=== PATIENT | male | born 2000 | race Caucasian/White ===

== ENCOUNTER 2021-03-11 14:44 | Outpatient (REF) | payer OTHER, SELFPAY | END 2021-03-11 14:45 | disposition home or self-care (01) | LOC: HO.HMGCLDS 14:44 | PROVIDERS: PCP Internal Medicine; Visit Provider Internal Medicine | DX: Z20.822 Contact with and (suspected) exposure to COVID-19 (principal) | CPT/HCPCS: C9803; U0003; U0005 ==

== ENCOUNTER → 2021-03-24 12:46 | Outpatient (BNVA) | payer OTHER, SELFPAY | PROVIDERS: PCP Internal Medicine; Referring Provider Internal Medicine; Visit Provider Physician Assistant ==

== ENCOUNTER → 2021-03-27 16:21 | Outpatient (BNVA) | payer OTHER, SELFPAY | PROVIDERS: PCP Internal Medicine; Visit Provider Physician Assistant ==

== ENCOUNTER → 2021-04-28 08:13 | Outpatient (BNVA) | payer OTHER, SELFPAY | PROVIDERS: PCP Internal Medicine; Visit Provider Dietitian, Registered | DX: E66.9 Obesity, unspecified (principal); Z68.38 Body mass index [BMI] 38.0-38.9, adult | CPT/HCPCS: 97802 ==

== ENCOUNTER → 2021-05-30 13:39 | Outpatient (BNVA) | payer OTHER, SELFPAY | PROVIDERS: PCP Internal Medicine; Referring Provider Internal Medicine; Visit Provider Dietitian, Registered | DX: E66.9 Obesity, unspecified (principal); Z68.38 Body mass index [BMI] 38.0-38.9, adult; Z91.010 Allergy to peanuts; Z91.013 Allergy to seafood | CPT/HCPCS: 97803 ==

== ENCOUNTER → 2021-06-30 14:53 | Outpatient (BNVA) | payer OTHER, SELFPAY | PROVIDERS: PCP Internal Medicine; Referring Provider Internal Medicine; Visit Provider Physician Assistant ==

== ENCOUNTER 2024-01-31 17:20 | Outpatient (AMB) | payer OTHER, SELFPAY ==
--- NOTE | 2024-01-31 17:26 | MHC.PC.OV ---
Vital Signs 01/31/24 17:28 Height 6 ft 2 in Weight 315 lb BMI 40.4 BP 124/86 Blood Pressure Location Lt brachial Position Sitting Pulse 91 Pulse Source Pulse Oximeter Pulse Oximetry (%) 97 Oxygen Delivery Method Room Air Intake Visit Reasons: Annual Exam Intake Note: Patient here for an annual physical exam Program Evaluator Required: No Accompanied by: Self / Same As Patient Allergies penicillin V Allergy (Severe, Verified 01/31/24 17:29) Anaphylaxis Medication List - Last Reconciled 01/31/24 by Royer Alonzo MD triamcinolone acetonide 0.1% 1 appl topical DAILY 14 days Tobacco use date assessed: 01/31/24 Dental Screening Dental Screen Date: 01/31/24 Did you have a dental visit in the last 12 months?: Yes Did you have a dental problem in the last 6 months where you did not have access to dental care?: No Was dental information given to patient?: Patient has dentist HPI Annual Exam HPI Details 23-year-old morbidly obese male with BMI of 40.4 coming in for physical exam last seen in June 2021. Patient did see the nurse practitioner last year January for physical exam also diagnosis of psoriasis and was referred to dermatology with the weight problem was referred to weight management 2020 was recommended certain diet. [facility] Medical History (Updated 01/31/24 @ 18:01 by Royer Alonzo MD) BMI 38.0-38.9,adult Asthma Psoriasis Obesity (BMI 30-39.9) Surgical History (Updated 01/31/24 @ 17:29 by STEFANO Hidalgo) No pertinent past surgical history Family History Mother No problems noted. Father No problems noted. Sister No problems noted. Sister No problems noted. Brother No problems noted. Brother No problems noted. Social History (Updated 01/31/24 @ 18:06 by Royer Alonzo MD) Housing: House Alcohol intake: current Alcohol intake frequency: holidays/special occasions only Alcohol type: hard liquor Comment: once a month hard liquor 2-3 glasses Patient Tobacco Use Status: Never used Tobacco e-Cigarette/Vaping Use: Never Used Second Hand Smoke Exposure: No service: No Current occupational status: employed Current occupational exposures/hazards: No Cognitive needs: No Hearing needs: No Vision needs: No Questionnaire PHQ-9 Over the last 2 weeks, how often have you been bothered by any of the following problems? 1. Little interest or pleasure in doing things: not at all 2. Feeling down, depressed, or hopeless: not at all 3. Trouble falling or staying asleep, or sleeping too much: not at all 4. Feeling tired or having little energy: not at all 5. Poor appetite or overeating: not at all 6. Feeling bad about yourself - or that you are a failure or have let yourself or your family down: not at all 7. Trouble concentrating on things, such as reading the newspaper or watching television: not at all 8. Moving or speaking so slowly that other people could have noticed. Or the opposite - being so fidgety or restless that you have been moving around a lot more than usual: not at all 9. Thoughts that you would be better off or of hurting yourself in some way: not at all Total score: 0 Source: Developed by Drs. Jian Mac, Elise Self, Chadwick Armijo and colleagues, with an educational elroy from [employer]. Thrive Questionnaire Date Thrive assessed: 01/31/24 I am a: Patient What is your living situation today?: I have a steady place to live Within the past 12 months, did the food you bought not last and you didn't have the money to get more?: Never true Within the past 12 months, did you worry whether your food would run out before you got money to buy more?: Never true Do you have trouble paying for medicines?: No Do you have trouble getting transportation to medical appointments?: No Do you have trouble paying your heating and electricity bill?: No Do you have trouble taking care of your child, family member or friend?: No Do you have trouble with day-to-day activities such as bathing, preparing meals, shopping, managing finances, etc.?: No Are you currently unemployed and looking for a job?: No Are you interested in more education?: No Please select the resources that you would like help with: None Currently or been in a relationship where the following occur: no concerns reported THRIVE Score: 0 AUDIT C Alcohol Use Questionnaire (AUDIT-C) 1. How often do you have a drink containing alcohol?: Monthly or less 2. How many drinks containing alcohol do you have on a typical day when you are drinking?: 1 or 2 3. How often do you have six or more drinks on one occasion?: Never Total Score: 1 LUKAS-7 AMB Questionnaire LUKAS-7 Date LUKAS - 7 assessed: 01/31/24 Feeling nervous, anxious, or on edge: 0 = Not at all Not being able to stop or control worryin = Not at all Worrying too much about different things: 0 = Not at all Trouble relaxin = Not at all Being so restless that it is hard to sit still: 0 = Not at all Becoming easily annoyed or irritable: 0 = Not at all Feeling afraid as if something awful might happen: 0 = Not at all Total LUKAS-7 score (0-4 normal; 5-9 mild; 10-14 moderate; 15-21 severe): 0 Source: Developed by Drs. Jian Mac, Elise Self, Chadwick Armijo and colleagues, with an educational elroy from [employer]. Review of Systems Const Denies poor appetite and Denies weakness Eyes Denies no additional complaints ENT Reports Normal hearing present, Denies dizziness, Denies nasal congestion, Denies tinnitus and Denies sore throat Card Denies chest pain, Denies syncope, Denies rapid heart rate and Denies dyspnea Resp Denies cough and Denies dyspnea GI Denies change in stool character, Reports constipation, Denies diarrhea, Denies nausea and Denies vomiting Denies dysuria and Denies urinary frequency Neuro Reports Normal hearing present, Denies confusion, Denies dizziness, Denies syncope and Denies weakness Psych Denies confusion Physical exam (Primary Care) Vital Signs: Last Vital Signs Pulse 91 01/31/24 17:28 BP 124/86 01/31/24 17:28 Pulse Ox 97 01/31/24 17:28 Oxygen Delivery Method Room Air 01/31/24 17:28 BMI result Body Mass Index 40.4 Tobacco/Smoking Status: Tobacco use Status Tobacco use date assessed 01/31/24 01/31/24 17:34 Patient Tobacco Use Status Never used Tobacco 01/31/24 17:34 e-Cigarette/Vaping Use Never Used 01/31/24 17:34 PHQ-9: PHQ-9 Score PHQ-9: Total score 0 01/31/24 17:34 Thrive Assessment: Date of Thrive Assessment Date Thrive assessed 01/31/24 01/31/24 17:34 Currently or been in a relationship where the following occur: no concerns reported Const General: No confusion Orientation/consciousness: No confusion HENMT Head: Yes normocephalic Ears: external ears normal and TM's normal bilaterally Face and sinus: Yes normal facial exam Mouth: moist mucous membranes Throat: Yes tonsils normal Eyes Conjunctivae: conjunctivae normal Pupils: Equal, round and reactive pupils present and Pupil accommodation reflex normal Direct Ophthalmoscopy: normal light reflex Neck Neck: No lymphadenopathy Thyroid: Thyroid normal Chest Chest palpation & inspection: normal inspection of the chest Resp Effort & Inspection: normal respiratory effort and no audible wheezes Auscultation: clear to auscultation bilaterally, no crackles, no wheezes and lung sounds not diminished Cardio Rate: regular rate Rhythm: regular rhythm Peripheral pulses: radial pulses present and dorsalis pedis present GI Other: visual exam negative Palpation (GI): no masses Auscultation: normal bowel sounds and normoactive bowel sounds Rectal Exam - Male: Yes deferred Male General Exam: Yes normal external exam Skin General skin exam: no rashes or lesions noted Rashes: no rashes Neuro General: No confusion Cranial nerves: Yes Equal, round and reactive pupils present and Yes Normal hearing present Cognition (Neuro): normal cognition Gait exam (Neuro): Normal gait present Motor exam (neuro): 5/5 motor strength present throughout Deep tendon reflexes (DTR's): Right brachioradialis reflex intensity grade: 2+, Left brachioradialis reflex intensity grade: 2+, Right patellar reflex intensity grade: 2+ and Left patellar reflex intensity grade: 2+ Extrem General: No edema Assessment and Plan Assessment & Plan (1) Morbidly obese: Code(s): E66.01 - Morbid (severe) obesity due to excess calories Plan: Diet and exercise patient is advised to get blood work done (2) Adult general medical exam: Code(s): Z00.00 - Encounter for general adult medical examination without abnormal findings (3) Psoriasis: Code(s): L40.9 - Psoriasis, unspecified Plan: Dr. Muir , hydorcortisone cream Orders: Orders Complete Blood Count Auto Diff Today Z00.00 - Encounter for general adult medical examination without abnormal findings Comprehensive Met. Panel Today Z00.00 - Encounter for general adult medical examination without abnormal findings Thyroid Stimulating Hormone Today Z00.00 - Encounter for general adult medical examination without abnormal findings Vitamin B12 and Folate Today Z00.00 - Encounter for general adult medical examination without abnormal findings Free T4 (Free Thyroxine) Today Z00.00 - Encounter for general adult medical examination without abnormal findings Lipid Panel Today E78.00 - Pure hypercholesterolemia, unspecified, Z00.00 - Encounter for general adult medical examination without abnormal findings Coding Level of Care Code Est Pt Prev Care 18-39y([id number]) Diagnoses Morbidly obese E66.01 Adult general medical exam Z00.00 Psoriasis L40.9
[2024-01-31 17:28] VITALS: BP 124/86; PULSE 91; O2SAT 97; BMI 40.4
== END 2024-01-31 18:19 | disposition home or self-care (01) ==
PROVIDERS: Visit Provider Internal Medicine
DX: Z00.00 Encounter for general adult medical examination without abnormal findings (principal); E66.01 Morbid (severe) obesity due to excess calories; L40.9 Psoriasis, unspecified; Z68.41 Body mass index [BMI] 40.0-44.9, adult
CPT/HCPCS: 99395

== ENCOUNTER 2025-02-01 16:10 | Outpatient (AMB) | payer OTHER, SELFPAY ==
--- NOTE | 2025-02-01 16:16 | A.OFFPC_ITS ---
Vital Signs 02/01/25 16:17 Height 6 ft 2 in Weight 302 lb BMI 38.8 BP 130/86 Blood Pressure Location Lt brachial Position Sitting Pulse 95 Pulse Source Pulse Oximeter Temp 96.9 F Temp Source Temporal Artery Scan Pulse Oximetry (%) 97 Oxygen Delivery Method Room Air Intake Visit Reasons: annual exam Ob/Gyn Required: No Accompanied by: Self / Same As Patient Allergies penicillin V Allergy (Severe, Verified 02/01/25 16:21) Anaphylaxis Medication List - Last Reconciled 02/01/25 by Royer Alonzo MD apremilast (Otezla) 30 mg PO BID ascorbate calcium (vitamin C) 500 mg PO DAILY cholecalciferol (vitamin D3) 25 mcg PO DAILY triamcinolone acetonide 0.1% 1 appl topical DAILY 14 days vitamin A 2,400 mcg PO DAILY Tobacco use date assessed: 02/01/25 Dental Screening Dental Screen Date: 02/01/25 Did you have a dental visit in the last 12 months?: Yes Did you have a dental problem in the last 6 months where you did not have access to dental care?: No Was dental information given to patient?: Patient has dentist HPI annual exam HPI Details travelling recently, sick cold recently,, sore throat and cough better, , [facility] Medical History (Updated 02/01/25 @ 16:50 by Royer Aolnzo MD) Morbidly obese BMI 38.0-38.9,adult Asthma Psoriasis Obesity (BMI 30-39.9) Surgical History No pertinent past surgical history Family History Mother No problems noted. Father No problems noted. Sister No problems noted. Sister No problems noted. Brother No problems noted. Brother No problems noted. Social History (Updated 02/01/25 @ 16:29 by Royer Alonzo MD) Housing: House Alcohol intake: current Alcohol intake frequency: holidays/special occasions only Alcohol type: hard liquor Comment: once a month hard liquor 2-3 glasses- 02/2025 1-2 drinks Q4-5 months Patient Tobacco Use Status: Never used Tobacco e-Cigarette/Vaping Use: Never Used Second Hand Smoke Exposure: No service: No Current occupational status: employed Current occupational exposures/hazards: No Cognitive needs: No Hearing needs: No Vision needs: No Questionnaire PHQ-9 Over the last 2 weeks, how often have you been bothered by any of the following problems? 1. Little interest or pleasure in doing things: not at all 2. Feeling down, depressed, or hopeless: not at all 3. Trouble falling or staying asleep, or sleeping too much: not at all 4. Feeling tired or having little energy: not at all 5. Poor appetite or overeating: not at all 6. Feeling bad about yourself - or that you are a failure or have let yourself or your family down: not at all 7. Trouble concentrating on things, such as reading the newspaper or watching television: not at all 8. Moving or speaking so slowly that other people could have noticed. Or the opposite - being so fidgety or restless that you have been moving around a lot more than usual: not at all 9. Thoughts that you would be better off or of hurting yourself in some way: not at all Total score: 0 Depression Screening Interpretation: Negative Depression Screening Done: Yes 22307 - PHQ-9 Billing: Yes Source: Developed by Drs. Jian Mac, Elise Self, Chadwick Armijo and colleagues, with an educational elroy from [employer]. Thrive Questionnaire Date Thrive assessed: 02/01/25 I am a: Patient What is your living situation today?: I have a steady place to live Within the past 12 months, did the food you bought not last and you didn't have the money to get more?: Never true Within the past 12 months, did you worry whether your food would run out before you got money to buy more?: Never true Do you have trouble paying for medicines?: No Do you have trouble getting transportation to medical appointments?: No Do you have trouble paying your heating and electricity bill?: No Do you have trouble taking care of your child, family member or friend?: No Do you have trouble with day-to-day activities such as bathing, preparing meals, shopping, managing finances, etc.?: No Are you currently unemployed and looking for a job?: No Are you interested in more education?: I choose not to answer this question Please select the resources that you would like help with: None Currently or been in a relationship where the following occur: No concerns reported THRIVE Score: 0 AUDIT C Alcohol Use Questionnaire (AUDIT-C) 1. How often do you have a drink containing alcohol?: Monthly or less 2. How many drinks containing alcohol do you have on a typical day when you are drinking?: 1 or 2 3. How often do you have six or more drinks on one occasion?: Never Total Score: 1 LUKAS-7 AMB Questionnaire LUKAS-7 Date LUKAS - 7 assessed: 02/01/25 Feeling nervous, anxious, or on edge: 0 = Not at all Not being able to stop or control worryin = Not at all Worrying too much about different things: 0 = Not at all Trouble relaxin = Not at all Being so restless that it is hard to sit still: 0 = Not at all Becoming easily annoyed or irritable: 0 = Not at all Feeling afraid as if something awful might happen: 0 = Not at all Total LUKAS-7 score (0-4 normal; 5-9 mild; 10-14 moderate; 15-21 severe): 0 Source: Developed by Drs. Jian Mac, Elise Self, Chadwick Armijo and colleagues, with an educational elroy from [employer]. LUKAS-7 Assessment Billing LUKAS-7 Assessment Tool: LUKAS-7 Assessment 04595 Review of Systems Const Denies poor appetite and Denies weakness Eyes Denies no additional complaints ENT Reports Normal hearing present, Denies dizziness, Denies nasal congestion, Denies tinnitus and Denies sore throat Card Denies chest pain, Denies syncope, Denies rapid heart rate and Denies dyspnea Resp Denies cough and Denies dyspnea GI Denies change in stool character, Reports constipation, Denies diarrhea, Denies nausea and Denies vomiting Denies dysuria and Denies urinary frequency Neuro Reports Normal hearing present, Denies confusion, Denies dizziness, Denies syncope and Denies weakness Psych Denies confusion Physical exam (Primary Care) Vital Signs: Oxygen Delivery Method Room Air 02/01/25 16:17 Tobacco/Smoking Status: Tobacco use Status Tobacco use date assessed 01/31/24 01/31/24 17:34 Patient Tobacco Use Status Never used Tobacco 01/31/24 18:06 e-Cigarette/Vaping Use Never Used 01/31/24 18:06 Depression Screening Interpretation: Negative Thrive Assessment: Date of Thrive Assessment Date Thrive assessed 02/01/25 02/01/25 16:05 Currently or been in a relationship where the following occur: No concerns reported Const General: No confusion Orientation/consciousness: No confusion HENMT Other: impacted cerumen bilateral Head: Yes normocephalic Ears: external ears normal Face and sinus: Yes normal facial exam Mouth: moist mucous membranes Throat: Yes tonsils normal Eyes Conjunctivae: conjunctivae normal Pupils: Equal, round and reactive pupils present and Pupil accommodation reflex normal Direct Ophthalmoscopy: normal light reflex Neck Neck: No lymphadenopathy Thyroid: Thyroid normal Chest Chest palpation & inspection: normal inspection of the chest Resp Effort & Inspection: normal respiratory effort and no audible wheezes Auscultation: clear to auscultation bilaterally, no crackles, no wheezes and lung sounds not diminished Cardio Rate: regular rate Rhythm: regular rhythm Peripheral pulses: radial pulses present and dorsalis pedis present GI Palpation (GI): no masses Auscultation: normal bowel sounds and normoactive bowel sounds Rectal Exam - Male: Yes deferred Skin General skin exam: no rashes or lesions noted Rashes: no rashes Neuro General: No confusion Cranial nerves: Yes Equal, round and reactive pupils present and Yes Normal hearing present Cognition (Neuro): normal cognition Gait exam (Neuro): Normal gait present Motor exam (neuro): 5/5 motor strength present throughout Deep tendon reflexes (DTR's): Right brachioradialis reflex intensity grade: 2+, Left brachioradialis reflex intensity grade: 2+, Right patellar reflex intensity grade: 2+ and Left patellar reflex intensity grade: 2+ Extrem General: No edema Office Procedures Cerumen Removal From which ear canal was the cerumen removed: bilateral Removal: irrigation, otoscope w/curette, cerumen loop/spoon and other Notes: patient tolerated procedure well, no complications and ear canal clear 64512-Ynj Irrigation/Lavage Coding Level of Care Code Est Pt Level 3 (61117) Est Pt Prev Care 18-39y(70888) Diagnoses Adult general medical exam Z00.00 Psoriasis L40.9 Obesity (BMI 30-39.9) E66.9 Impacted cerumen of both ears H61.23 CPT Codes Office Procedure - CPT: 37096-Qph Irrigation/Lavage ([id number]) Additional Codes LUKAS-7 Assessment Billing - LUKAS-7 Assessment Tool: LUKAS-7 Assessment 06019 ([id number]) PHQ-9 - 06141 - PHQ-9 Billing: Yes ([id number]) Assessment & Plan Assessment & Plan (1) Adult general medical exam: Code(s): Z00.00 - Encounter for general adult medical examination without abnormal findings Category: Medical Plan: Patient is advised to eat healthy, keep well hydrated, keep active and have adequate sleep. (2) Psoriasis: Comment: Dr. Christianson Code(s): L40.9 - Psoriasis, unspecified Category: Medical (3) Obesity (BMI 30-39.9): Code(s): E66.9 - Obesity, unspecified Category: Medical Plan: Continue with diet and exercise noted 13 lb weight loss (4) Impacted cerumen of both ears: Code(s): H61.23 - Impacted cerumen, bilateral Category: Medical Plan: irrigation done and TM intact bilateral Plan History of Present Illness The patient is a 24-year-old male presenting for a physical examination and assessment of his current health status. The patient has a known history of psoriasis, being managed with Otezla and topical creams, with noted improvement mainly on facial and labial areas, albeit discontinuation during a recent vacation. His history includes a 13-pound weight loss achieved through concerted diet and exercise efforts. He reports an allergy to penicillin, with no other known drug or environmental allergies. Following recent travel from [place], he experienced jet lag and cold symptoms, including sore throat, cough, and congestion, which have been improving. Ear blockage has persisted since air travel, believed to be related to congestion from his cold. The patient denies any experience with chest pain, breathlessness, or fainting episodes. His urine and bowel routines remain consistent, and he maintains a healthy diet but experiences difficulty seeing during nighttime driving. Health Maintenance - Wellness plan with emphasis on continued diet and exercise is noted. - Fasting blood work is scheduled to monitor liver, kidney function, blood sugar, thyroid, cholesterol, and B12 levels. - Eight-hour fasting prior to blood work, with only sips of water allowed. Social History - Alcohol consumption minimal: two to three drinks on a rare occasion, with usually one to two drinks every four to five months. - Denies any tobacco or recreational drug use. - Experienced significant weight loss through diet and exercise. - Reports a balanced intake of zljq-cse-gropapq vitamins including Vitamin A, C, and D. - Reports difficulty seeing during nighttime driving. Review of Systems - Skin: Reports psoriasis, primarily managed; no new lesions reported. - Ears: Reports right ear blockage post-flight; denies regular ear cleaning history. - Respiratory: Reports congestion; denies chest pain or dyspnea. - Gastrointestinal: Denies issues with bowel movements. - Genitourinary: Denies any urinary issues. - Neurological: Denies dizziness habitually; reports post-travel dizziness. - Visual: Reports difficulty with night vision when driving. - Musculoskeletal: Denies joint pain or musculoskeletal issues. - General: Reports improved cold symptoms. Physical Exam General: Cooperative, healthy appearing, comfortable, no acute distress and well developed Orientation: Patient oriented x3 Limitations: No limitations Head: Normal to inspection Ears: Hearing grossly normal bilaterally, but right ear has significant earwax buildup, causing temporary hearing issues. Earwax was flushed out. Nose: Normal external nose present, but some congestion noted due to recent cold Face and sinus: Normal facial exam, but presence of psoriasis-related rashes noted Eyes: Appearance normal, both eyes and all related structures, but patient reports difficulty seeing at night while driving Neck: Normal visual inspection and Yes full ROM Respiratory: Normal respiratory effort and able to speak in complete sentences. Clear to auscultation bilaterally Cardiovascular: Regular rate and rhythm. Normal S1 and S2 GI: Normal to inspection. Soft to palpation and nontender Skin: Psoriasis-related rashes noted on nose, lips, and hands Neuro: Patient oriented x3 Extremities: Normal to inspection Results Plan A comprehensive approach was undertaken to manage the patient?s psoriasis, with a continuation of Otezla noted crucial. We emphasized adherence to prescribed treatment regimens. Success in weight loss through lifestyle adjustments was acknowledged, and continuation of this trend was advised. Blood tests were requisitioned to assess liver and kidney health. The right ear was cleared of cerumen buildup via irrigation. His transient cold-related symptoms required no further intervention as they are resolving. The patient should remain alert to any persisting ear discomfort or other symptoms requiring attention. Patient was informed and verbally consented to the use of an ambient scribe for clinic note documentation during this visit. Discussion Notes I reviewed with the patient the necessity of continuing Otezla for the maintenance of his psoriasis, given the current mild improvement and anticipated full effect after consistent use. We discussed the importance of adherence to his medication regimen. I highlighted the successful health outcomes from the patient's weight management efforts. For blood work, I explained the fasting requirement associated and its purpose concerning medication effects monitoring. Consent was obtained for the cerumen removal, with clear post-procedure expectations discussed. The need to monitor any exacerbation of cold symptoms was addressed, and the patient was advised to return if required. Patient Instructions - Continue taking Otezla as prescribed; ensure regular use. - Engage in established diet and exercise regimen to maintain weight loss. - Observe an eight-hour fast with minimal water intake before scheduled blood tests. - Monitor for persistent or new symptoms, and seek attention if needed. - Regularly clean ears if instructed to prevent earwax buildup. - Maintain appointments for recommended follow-ups and any necessary consultations. Orders: Orders Complete Blood Count Auto Diff Today L40.9 - Psoriasis, unspecified Free T4 (Free Thyroxine) Today L40.9 - Psoriasis, unspecified Vitamin B12 and Folate Today L40.9 - Psoriasis, unspecified Comprehensive Met. Panel Today L40.9 - Psoriasis, unspecified Thyroid Stimulating Hormone Today L40.9 - Psoriasis, unspecified Lipid Panel Today E78.00 - Pure hypercholesterolemia, unspecified, L40.9 - Psoriasis, unspecified Hemoglobin A1c Today L40.9 - Psoriasis, unspecified
[2025-02-01 16:17] VITALS: BP 130/86; PULSE 95; TEMP 36.1; O2SAT 97; BMI 38.8
--- OUTSIDE RECORDS SUMMARY | 2025-02-01 17:29 | XMS_ITS | Encounter Summary ---
Author Organization [facility] Address [address] [place] [id number] Phone Care Team Providers Care Cartography Supervisor Name Role Phone Ace Richard MD Primary Care Provider [phone] Encounter Details Date Type Department Care Team (Late st Contact Info) Description 05/22/2015 [place]ation [facility] [place] [address] [place] [address] Family Medicine, Physician [address] [place], [place] [phone] Social History Tobacco Use Types Packs/Day Years Used Date Smoking Tobacco: Never Assessed Sex and Gender Information Value Date Recorded Sex Assigned at Not on file Legal Sex Male 4:58 PM EDT Gender Identity Not on file Sexual Orientation Not on file documented as of this encounter Plan of Treatment Not on file documented as of this encounter Visit Diagnoses Not on filedocumented in this encounter Care Teams Cartography Supervisor Relationship Specialty Start Date End Date Ace Richard MD [address] [place] [phone] PCP - General 05/14/17 03/30/23 documented as of this encounter
--- OUTSIDE RECORDS SUMMARY | 2025-02-01 17:30 | XMS_ITS | Encounter Summary ---
Author Organization [facility] Address [address] [place] [address] Phone Care Team Providers Care Music Autographer Name Role Phone Ace Richard MD Primary Care Provider [phone] Encounter Details Date Type Department Care Team (Late st Contact Info) Description 05/24/2017 Documentation [facility] [place] [address] [place] [address] Family Medicine, Physician [address] [place], [place] [phone] Social History Tobacco Use Types Packs/Day Years Used Date Smoking Tobacco: Never Comments:Never smoker Sex and Gender Information Value Date Recorded Sex Assigned at Not on file Legal Sex Male 4:58 PM EDT Gender Identity Not on file Sexual Orientation Not on file documented as of this encounter Plan of Treatment Not on file documented as of this encounter Visit Diagnoses Not on filedocumented in this encounter Care Teams Music Autographer Relationship Specialty Start Date End Date Ace Richard MD [address] [place] [phone] PCP - General 05/14/17 03/30/23 documented as of this encounter
--- OUTSIDE RECORDS SUMMARY | 2025-02-01 17:30 | XMS_ITS | Clinical Summary ---
Author Organization [facility] Address [address] [place] [phone] Phone Care Team Providers Care Refrigeration Manager Name Role Phone Unavailable Primary Care Provider Unavailabl e Allergies Active Allergy Reactions Criticality Noted Date Comments Penicillins Rash Low Medications No known medications Active Problems Problem Noted Date Diagnosed Date Psoriasis 05/23/2018 BMI (body mass index), pedia tric, 85% to less than 95% for age 0805/12/2012 Resolved Problems Problem Noted Date Diagnosed Date Resolved Date Mild intermittent asthma without complication 08/21/20 09 05/23/2018 Immunizations Immunization Administration Dates Next Due DTaP 5 01/11/2004, 0,1999,10/07,1999 HPV, Quadrivalent 05/16/2013,07/26/2012,05/12/20 12 Hep A, ped/adol 05/18/2014,04/23/2011 Hep B, ped/adol 1999,1999,1999 Hib (PRP-T) 09/10/2000, 0,1999,08/04 IPV 01/11/2004, 0,1999,08/04 Influenza, injectable, quadr ivalent, preservative free 06/04/2016 Influenza, injectable, trivalent 09/19/2003 MMR 04/10/2003,06/04/2000 Meningococcal B Trumenba 05/23/2018 Meningococcal Conj (Menactra) MCV4P 05/20/2016,0 04/23/2011 Tdap 04/23/2011 Varicella 04/16/2008,06/04/2000 Family History Medical History Relation Name Comments Autism Brother 1 Drew No Known Problems Brother 2 Christophe No Known Problems Father eliel No Known Problems Mother Shilpa No Known Problems Other 1 ADD / ADHD Other 2 Asthma Other 2 Diabetes Other 2 Obesity Other 2 Strabismus Other 2 No Known Problems Sister alejandro Relation Name Status Comments Brother 1 Drew Alive Brother: Autism , cataracts Brother 2 Christophe Alive Brother: Autism , cataracts Father eliel Alive Father: Healthy Mother Shilpa Alive Mother: Migrain es Other 1 uncle: Strabism us Other 2 Family history of Asthma, Family history of Strabismus, Family history of Obesity, Family history of Diabetes mellitus, Family history of ADD/ADHD Sister alejandro Alive Social History Tobacco Use Types Packs/Day Years Used Date Smoking Tobacco: Never Smokeless Tobacco: Never Comments:Never smoker Alcohol Use Standard Drinks/Week Comments Never 0 (1 standard drink = 0.6 oz pur e alcohol) Sex and Gender Information Value Date Recorded Sex Assigned at Not on file Legal Sex Male 4:58 PM EDT Gender Identity Not on file Sexual Orientation Not on file Last Filed Vital Signs Vital Sign Reading Time Taken Comments Blood Pressure 117/82 05/23/2018 9:18 AM EDT Pulse 74 05/23/2018 9:18 AM EDT Temperature 36.7 ??C (98 ??F) 05/23/2018 9:18 AM EDT Respiratory Rate - - Oxygen Saturation 99% 10/29/2010 12:00 AM EST Inhaled Oxygen Concentration - - Weight 110 kg (242 lb 8 oz) 05/23/2018 9:18 AM E DT Height 188.6 cm (6' 2.25 ) 05/23/2018 9:18 AM ED T Body Mass Index 30.93 05/23/2018 9:18 AM EDT Plan of Treatment Health Maintenance Due Date Last Done Comments Men B Vaccine (2 of 2 - Trumenba SCDM 2-dose series) 11/23/2018 05/23/2018 DTaP,Tdap,and Td Vaccines (7 - Td or Tdap) 04/23/2021 04/23/2011, 01/11/2004, 09/10/2000, Additional history exists Influenza Vaccines (#1) 2024 06/04/2016, 09/19 COVID-19 Vaccine ( season) 2024 Hepatitis B Vaccines Completed 1999, 1999, 1999 HIB Vaccines Completed 09/10/2000, 01/2000, 1999, Additional history exists MMR Vaccines Completed 04/10/2003, 06/04/2000 IPV Vaccines Completed 01/11/2004, 01/2000, 1999, Additional history exists Varicella Vaccines Completed 04/16/2008, 06/04/2000 HPV Vaccines Completed 05/16/2013, 07/05, 05/12/2012 Hepatitis A Vaccines Completed 05/18/2014, 04/23/20 11 Meningococcal Vaccine Completed 05/20/2016, 011 Pneumococcal Vaccine Aged Out No long er eligible based on patient's age to complete this topic
--- OUTSIDE RECORDS SUMMARY | 2025-02-01 17:30 | XMS_ITS | Encounter Summary ---
Author Organization [facility] Address [address] [place] [phone] Phone Care Team Providers Care Cyber Ops Planner Name Role Phone Ace Richard MD Primary Care Provider [phone] Encounter Details Date Type Department Care Team (Late st Contact Info) Description 05/22/2015 Documentation [facility] [place] [address] [place] [address] Family Medicine, Physician [address] [place], [place] [phone] Social History Tobacco Use Types Packs/Day Years [...] on filedocumented in this encounter Care Teams Cyber Ops Planner Relationship Specialty Start Date End Date Ace Richard MD [address] [place] [phone] PCP - General 05/14/17 03/30/23 documented as of this encounter
--- OUTSIDE RECORDS SUMMARY | 2025-02-01 17:30 | XMS_ITS | Encounter Summary ---
Author Organization [facility] Address [address] [place] [phone] Phone Care Team Providers Care Learning Support Specialist Name Role Phone Ace Richard MD Primary Care Provider [phone] Encounter Details Date Type Department Care Team (Late st Contact Info) Description 07/27/2012 Documentation [facility] [place] [address] [place] [address] Family Medicine, Physician [address] [place], [place] [phone] Social History Tobacco Use Types Packs/Day Years [...] on filedocumented in this encounter Care Teams Learning Support Specialist Relationship Specialty Start Date End Date Ace Richard MD [address] [place] [phone] PCP - General 05/14/17 03/30/23 documented as of this encounter
--- OUTSIDE RECORDS SUMMARY | 2025-02-01 17:30 | XMS_ITS | Encounter Summary ---
Author Organization [facility] Address [address] [place] [phone] Phone Care Team Providers Care Credit Risk Modeler Name Role Phone Ace Richard MD Primary Care Provider [phone] Encounter Details Date Type Department Care Team (Late st Contact Info) Description 05/24/2017 Documentation [facility] [place] [address] [place] [address] Family Medicine, Physician [address] [place], [place] [phone] Social History Tobacco Use Types Packs/Day Years [...] on filedocumented in this encounter Care Teams Credit Risk Modeler Relationship Specialty Start Date End Date Ace Richard MD [address] [place] [phone] PCP - General 05/14/17 03/30/23 documented as of this encounter
--- OUTSIDE RECORDS SUMMARY | 2025-02-01 17:30 | XMS_ITS | Encounter Summary ---
Author Organization [facility] Address [address] [place] [address]805 Phone Care Team Providers Care Boat Cleaner Name Role Phone Ace Richard MD Primary Care Provider [phone] Encounter Details Date Type Department Care Team (Late st Contact Info) Description 05/17/2013 Documentation [facility] [place] Family Medicine [address] [place] [address] Family Medicine, Physician [address] [place], [place] [phone] Social History Tobacco Use Types Packs/Day Years [...] on filedocumented in this encounter Care Teams Boat Cleaner Relationship Specialty Start Date End Date Ace Richard MD [address] [place] [address] 40847 PCP - General 05/14/17 03/30/23 documented as of this encounter
--- OUTSIDE RECORDS SUMMARY | 2025-02-01 17:30 | XMS_ITS | Encounter Summary ---
Author Organization [facility] Address [address] [place] [address] 15561 Phone Care Team Providers Care Arm Rest Builder Name Role Phone Ace Richard MD Primary Care Provider [phone] Encounter Details Date Type Department Care Team (Late st Contact Info) Description 05/13/2012 Documentation [facility] [place] [address] [place] [address] Family Medicine, Physician [address] [place], [place] [phone] Social History Tobacco Use Types Packs/Day Years [...] on filedocumented in this encounter Care Teams Arm Rest Builder Relationship Specialty Start Date End Date Ace Richard MD [address] [place] [address] 86607 PCP - General 05/14/17 03/30/23 documented as of this encounter
--- OUTSIDE RECORDS SUMMARY | 2025-02-01 17:30 | XMS_ITS | Encounter Summary ---
Author Organization [facility] Address [address] [place] [address] 8[address]99 Phone Care Team Providers Care Cabinet Finisher Name Role Phone Ace Richard MD Primary Care Provider [phone] Encounter Details Date Type Department Care Team (Late st Contact Info) Description 05/21/2014 Documentation [facility] [place] [address] [place] [address] Family Medicine, Physician [address] [place], [place] [phone] Social History Tobacco Use Types Packs/Day Years [...] on filedocumented in this encounter Care Teams Cabinet Finisher Relationship Specialty Start Date End Date Ace Richard MD [address] [place] [address] 57323 PCP - General 05/14/17 03/30/23 documented as of this encounter
--- OUTSIDE RECORDS SUMMARY | 2025-02-01 17:30 | XMS_ITS | Encounter Summary ---
Author Organization [facility] Address [address] [place] [address] Phone Care Team Providers Care Grinding Machine Operator Portable Name Role Phone Ace Richard MD Primary Care Provider [phone] Encounter Details Date Type Department Care Team (Late st Contact Info) Description 05/21/2014 Documentation [facility] [place] [address] [place] [address] Family Medicine, Physician [address] [place], [place] [phone] Social History Tobacco Use Types Packs/Day Years [...] on filedocumented in this encounter Care Teams Grinding Machine Operator Portable Relationship Specialty Start Date End Date Ace Richard MD [address] [place] [address] 61048 PCP - General 05/14/17 03/30/23 documented as of this encounter
--- OUTSIDE RECORDS SUMMARY | 2025-02-01 17:30 | XMS_ITS | Encounter Summary ---
Author Organization [facility] Address [address] [place] [address]95 Phone Care Team Providers Care Radioisotope Technician Name Role Phone Ace Richard MD Primary Care Provider [phone] Encounter Details Date Type Department Care Team (Late st Contact Info) Description 05/21/2016 Documentation [facility] [place] Family Medicine [address] [place] [address] Family Medicine, Physician [address] [place], [place] [phone] Social History Tobacco Use Types Packs/Day Years [...] on filedocumented in this encounter Care Teams Radioisotope Technician Relationship Specialty Start Date End Date Ace Richard MD [address] [place] [address] 55889 PCP - General 05/14/17 03/30/23 documented as of this encounter
--- OUTSIDE RECORDS SUMMARY | 2025-02-01 17:30 | XMS_ITS | Encounter Summary ---
Author Organization [facility] Address [address] [place] [address] Phone Care Team Providers Care Mine Manager Name Role Phone Ace Richard MD Primary Care Provider [phone] Encounter Details Date Type Department Care Team (Late st Contact Info) Description 05/13/2012 Documentation [facility] [place] Family Medicine [address] [place] [address] Family Medicine, Physician [address] [place], [place] [phone] Social History Tobacco Use Types Packs/Day Years [...] on filedocumented in this encounter Care Teams Mine Manager Relationship Specialty Start Date End Date Ace Richard MD [address] [place] [address] PCP - General 05/14/17 03/30/23 documented as of this encounter
--- OUTSIDE RECORDS SUMMARY | 2025-02-01 17:30 | XMS_ITS | Encounter Summary ---
Author Organization [facility] Address [address] [place] [address]394 Phone Care Team Providers Care Breakdown Worker Name Role Phone Ace Richard MD Primary Care Provider [phone] Encounter Details Date Type Department Care Team (Late st Contact Info) Description 05/17/2013 Documentation [facility] [place] [address] [place] [address] Family Medicine, Physician [address] [place], [place] [phone] Social History Tobacco Use Types Packs/Day Years [...] on filedocumented in this encounter Care Teams Breakdown Worker Relationship Specialty Start Date End Date Ace Richard MD [address] [place] [address] 41800 PCP - General 05/14/17 03/30/23 documented as of this encounter
--- OUTSIDE RECORDS SUMMARY | 2025-02-01 17:30 | XMS_ITS | Encounter Summary ---
Author Organization [facility] Address [address] [place] [address] Phone Care Team Providers Care Skills Auditor Name Role Phone Aec Richard MD Primary Care Provider [phone] Encounter Details Date Type Department Care Team (Late st Contact Info) Description 05/17/[address] [facility] [place] [address] [place] [address] Family Medicine, Physician [address] [place], [place] [phone] Social History Tobacco Use Types Packs/Day Years [...] on filedocumented in this encounter Care Teams Skills Auditor Relationship Specialty Start Date End Date Ace Richard MD [address] [place] [address] 68981 PCP - General 05/14/17 03/30/23 documented as of this encounter
--- OUTSIDE RECORDS SUMMARY | 2025-02-01 17:30 | XMS_ITS | Encounter Summary ---
Author Organization [facility] Address [address] [place] [address] Phone Care Team Providers Care Sinter Machine Operator Name Role Phone Ace Richard MD Primary Care Provider [phone] Encounter Details Date Type Department Care Team (Late st Contact Info) Description 07/27/2012 Documentation [facility] [place] Medicine [address] [place] [address] Family Medicine, Physician [address] [place], [place] [phone] Social History Tobacco Use Types Packs/Day Years [...] on filedocumented in this encounter Care Teams Sinter Machine Operator Relationship Specialty Start Date End Date Ace Richard MD [address] [place] [address] 11224 PCP - General 05/14/17 03/30/23 documented as of this encounter
--- OUTSIDE RECORDS SUMMARY | 2025-02-01 17:30 | XMS_ITS | Encounter Summary ---
Author Organization [facility] Address [address] [place] [address] 17970 Phone Care Team Providers Care Special Services Coordinator Name Role Phone Ace Richard MD Primary Care Provider [phone] Encounter Details Date Type Department Care Team (Late st Contact Info) Description 05/20/2017 Conversion Encounter [facility] [place] [address] [place] [address] Social History Tobacco Use Types Packs/Day Years [...] on filedocumented in this encounter Care Teams Special Services Coordinator Relationship Specialty Start Date End Date Ace Richard MD [address] [place] [address] PCP - General 05/14/17 03/30/23 documented as of this encounter
--- OUTSIDE RECORDS SUMMARY | 2025-02-01 17:30 | XMS_ITS | Encounter Summary ---
Author Organization [facility] Address [address] [place] [address] 396[address] Phone Care Team Providers Care Chemistry Specialist Name Role Phone Ace Richard MD Primary Care Provider Encounter Details Date Type Department Care Team (Late st Contact Info) Description 05/21/2014 Documentation [facility] [place] [address] [place] [address] Family Medicine, Physician [address] [place], [place] [phone] Social History Tobacco Use Types Packs/Day Years [...] on filedocumented in this encounter Care Teams Chemistry Specialist Relationship Specialty Start Date End Date Ace Richard MD [address] [place] [address] 78684 PCP - General 05/14/17 03/30/23 documented as of this encounter
--- OUTSIDE RECORDS SUMMARY | 2025-02-01 17:30 | XMS_ITS | Encounter Summary ---
Author Organization [facility] Address [address] [place] [address]178 Phone Care Team Providers Care River Boat Captain Name Role Phone Ace Richard MD Primary Care Provider [phone] Encounter Details Date Type Department Care Team (Late st Contact Info) Description 06/05/2016 Documentation [facility] [address] [place] [address] Family Medicine, Physician [address] [place], [place] [phone] Social History Tobacco Use Types Packs/Day Years [...] on filedocumented in this encounter Care Teams River Boat Captain Relationship Specialty Start Date End Date Ace Richard MD [address] [place] [address] 85602 PCP - General 05/14/17 03/30/23 documented as of this encounter
--- OUTSIDE RECORDS SUMMARY | 2025-02-01 17:30 | XMS_ITS | Encounter Summary ---
Author Organization [facility] Address [address] [place] [address]25 Phone Care Team Providers Care Lead Cashier Name Role Phone Ace Richard MD Primary Care Provider [phone] Encounter Details Date Type Department Care Team (Late st Contact Info) Description 05/22/2016 Documentation [facility] [place] [address] [place] [address] Family Medicine, Physician [address] [place], [place] [phone] Social History Tobacco Use Types Packs/Day Years [...] on filedocumented in this encounter Care Teams Lead Cashier Relationship Specialty Start Date End Date Ace Richard MD [address] [place] [address] 71370 PCP - General 05/14/17 03/30/23 documented as of this encounter
--- OUTSIDE RECORDS SUMMARY | 2025-02-01 17:30 | XMS_ITS | Encounter Summary ---
Author Organization [facility] Address [address] [place] [address] 99480 Phone Care Team Providers Care Residential Energy Auditor Name Role Phone Ace Richard MD Primary Care Provider [phone] Encounter Details Date Type Department Care Team (Late st Contact Info) Description 05/13/2012 Documentation [facility] [place] [address] [place] [address] Family Medicine, Physician [address] [place], [place] [phone] Social History Tobacco Use Types Packs/Day Years [...] on filedocumented in this encounter Care Teams Residential Energy Auditor Relationship Specialty Start Date End Date Ace Richard MD [address] [place] [address] 89957 PCP - General 05/14/17 03/30/23 documented as of this encounter
--- OUTSIDE RECORDS SUMMARY | 2025-02-01 17:30 | XMS_ITS | Encounter Summary ---
Author Organization [facility] Address [address] [place] [address]409 Phone Care Team Providers Care Paralegal Supervisor Name Role Phone Ace Richard MD Primary Care Provider [phone] Encounter Details Date Type Department Care Team (Late st Contact Info) Description 05/22/2016 Documentation [facility] [place] Family Medicine [address] [place] [address] Family Medicine, Physician [address] [place], [place] [phone] Social History Tobacco Use Types Packs/Day Years [...] on filedocumented in this encounter Care Teams Paralegal Supervisor Relationship Specialty Start Date End Date Ace Richard MD [address] [place] [address] 72737 PCP - General 05/14/17 03/30/23 documented as of this encounter
--- OUTSIDE RECORDS SUMMARY | 2025-02-01 17:30 | XMS_ITS | Encounter Summary ---
Author Organization [facility] Address [address] [place] [address] Phone Care Team Providers Care Electrician Office Name Role Phone Ace Richard MD Primary Care Provider [phone] Encounter Details Date Type Department Care Team (Late st Contact Info) Description 09/06/2013 Documentation [place] [facility] [address] [place] [address] Family Medicine, Physician [address] [place], [place] [phone] Social History Tobacco Use Types Packs/Day Years [...] on filedocumented in this encounter Care Teams Electrician Office Relationship Specialty Start Date End Date Ace Richard MD [address] [place] [address] 82817 PCP - General 05/14/17 03/30/23 documented as of this encounter
--- OUTSIDE RECORDS SUMMARY | 2025-02-01 17:30 | XMS_ITS | Encounter Summary ---
Author Organization [facility] Address [address] [place] [address] 95205 Phone Care Team Providers Care Line Mechanic Name Role Phone Ace Richard MD Primary Care Provider [phone] Encounter Details Date Type Department Care Team (Late st Contact Info) Description 05/21/2016 Documentation [facility] [place] [address] [place] [address] Family Medicine, Physician [address] [place], [place] [phone] Social History Tobacco Use Types Packs/Day Years [...] on filedocumented in this encounter Care Teams Line Mechanic Relationship Specialty Start Date End Date Ace Richard MD [address] [place] [address] 49816 PCP - General 05/14/17 03/30/23 documented as of this encounter
== END 2025-02-01 16:55 | disposition home or self-care (01) ==
LOC: HO.HMCH 16:10
PROVIDERS: PCP Internal Medicine; Visit Provider Internal Medicine
DX: Z00.00 Encounter for general adult medical examination without abnormal findings (principal); L40.9 Psoriasis, unspecified; E66.9 Obesity, unspecified; Z68.38 Body mass index [BMI] 38.0-38.9, adult; H61.23 Impacted cerumen, bilateral

== ENCOUNTER → 2025-02-01 16:10 | Outpatient (BNVA) | payer OTHER, SELFPAY | PROVIDERS: PCP Internal Medicine; Visit Provider Internal Medicine | DX: Z00.00 Encounter for general adult medical examination without abnormal findings (principal); L40.9 Psoriasis, unspecified; E66.9 Obesity, unspecified; Z68.38 Body mass index [BMI] 38.0-38.9, adult; H61.23 Impacted cerumen, bilateral | CPT/HCPCS: 69210; 96127 ==

== ENCOUNTER 2025-02-02 09:59 | Outpatient (REF) | payer OTHER, SELFPAY ==
[2025-02-02 10:26] LABS: MANUAL DIFF FLAG NO
[2025-02-02 10:45] LABS: Basophils Percent Auto 0.5 % (0-2); Eosinophils Absolute Auto 0.3 X10*3/uL (0.0-0.4); Eosinophils Percent Auto 6.5 % (0-4); Hematocrit 43.7 % (42.0-52.0); Hemoglobin 14.6 g/dl (14.0-18.0); Imm Gran Abs Auto 0.01 X10*3/uL (0.00-0.03); Imm Gran Pct Auto 0.3 % (0.0-0.4); Lymphocytes Absolute Auto 2.2 X10*3/uL (1.2-4.9); Mean Corpuscular HGB Conc 33.4 g/dl (31.0-36.0); Mean Corpuscular Volume 83.7 fL (80.0-98.0); Mean Platelet Volume 9.3 fL (9.4-12.4); Monocytes Absolute Auto 0.3 X10*3/uL (0.1-1.2); Monocytes Percent Auto 8.5 % (2-11); Neutrophils Absolute Auto 1.2 x10*3/uL (2.0-8.3); Neutrophils Percent Auto 30.2 % (45-73); Platelet Count 302 X10*3/uL (160-400); Red Blood Count 5.22 X10*6/uL (4.60-5.80); Red Cell Distribution Width 12.7 % (11.0-16.0)
--- OUTSIDE RECORDS SUMMARY | 2025-02-02 10:56 | XMS_ITS | Encounter Summary ---
Author Organization [facility] Address [address] [place] [address] 86682 Phone Care Team Providers Care Bug Trimmer Name Role Phone Ace Richard MD Primary Care Provider [phone] Encounter Details Date Type Department Care Team (Late st Contact Info) Description 05/22/2015 Documentation [facility] Family Medicine [address] [place] [address] Family Medicine, Physician [address] [place], [place] [phone] Social History Tobacco Use Types Packs/Day Years [...] on filedocumented in this encounter Care Teams Bug Trimmer Relationship Specialty Start Date End Date Ace Richard MD [address] [place] [address] 25868 PCP - General 05/14/17 03/30/23 documented as of this encounter
--- OUTSIDE RECORDS SUMMARY | 2025-02-02 10:56 | XMS_ITS | Encounter Summary ---
Author Organization [facility] Address [address] [place] [address] 35696 Phone Care Team Providers Care Clinical Engineering Director Name Role Phone Ace Richard MD Primary Care Provider [phone] Encounter Details Date Type Department Care Team (Late st Contact Info) Description 05/22/2015 Documentation [facility] [place] [address] [place] [address] Family Medicine, Physician [address] [place], [place] [phone] Social History Tobacco Use Types Packs/Day Years [...] on filedocumented in this encounter Care Teams Clinical Engineering Director Relationship Specialty Start Date End Date Ace Richard MD [address] [place] [address] 87384 PCP - General 05/14/17 03/30/23 documented as of this encounter
--- OUTSIDE RECORDS SUMMARY | 2025-02-02 10:57 | XMS_ITS | Encounter Summary ---
Author Organization [facility] Address [address] [place] [address]286 Phone Care Team Providers Care Outside Sales Professional Name Role Phone Ace Richard MD Primary Care Provider [phone] Encounter Details Date Type Department Care Team (Late st Contact Info) Description 05/17/2013 Documentation [facility] [place] [address] [place] [address] Family Medicine, Physician [address] [place], [place] [phone] Social History Tobacco Use Types Packs/Day Years [...] on filedocumented in this encounter Care Teams Outside Sales Professional Relationship Specialty Start Date End Date Ace Richard MD [address] [place] [address] 62652 PCP - General 05/14/17 03/30/23 documented as of this encounter
--- OUTSIDE RECORDS SUMMARY | 2025-02-02 10:57 | XMS_ITS | Clinical Summary ---
Author Organization [facility] Address [address] [place] [address]644 Phone Care Team Providers Care Senior Merchandiser Name Role Phone Unavailable Primary Care Provider [...]
--- OUTSIDE RECORDS SUMMARY | 2025-02-02 10:57 | XMS_ITS | Encounter Summary ---
Author Organization [facility] Address [address] [place] [address] 29918 Phone Care Team Providers Care Diamond Die Maker Name Role Phone Ace Richard MD Primary Care Provider [phone] Encounter Details Date Type Department Care Team (Late st Contact Info) Description 05/24/2017 Documentation [facility] [place] [address] [place] [address] Family Medicine, Physician [address] [place], [place] [phone] Social History Tobacco Use Types Packs/Day Years [...] on filedocumented in this encounter Care Teams Diamond Die Maker Relationship Specialty Start Date End Date Ace Richard MD [address] [place] [address] 25221 PCP - General 05/14/17 03/30/23 documented as of this encounter
--- OUTSIDE RECORDS SUMMARY | 2025-02-02 10:57 | XMS_ITS | Encounter Summary ---
Author Organization [facility] Address [address] [place] [address] 25684 Phone Care Team Providers Care Personal Banking Officer Name Role Phone Ace Richard MD Primary Care Provider [phone] Encounter Details Date Type Department Care Team (Late st Contact Info) Description 07/27/2012 Documentation [facility] [place] [address] [place] [address] Family Medicine, Physician [address] [place], [place] [phone] Social History Tobacco Use Types Packs/Day Years [...] on filedocumented in this encounter Care Teams Personal Banking Officer Relationship Specialty Start Date End Date Ace Richard MD [address] [place] [address] 96953 PCP - General 05/14/17 03/30/23 documented as of this encounter
--- OUTSIDE RECORDS SUMMARY | 2025-02-02 10:57 | XMS_ITS | Encounter Summary ---
Author Organization [facility] Address [address] [place] [address] 23424 Phone Care Team Providers Care Supplier Diversity Director Name Role Phone Ace Richard MD Primary Care Provider [phone] Encounter Details Date Type Department Care Team (Late st Contact Info) Description 05/24/2017 Documentation [facility] [place] [address] [place] [address] Family Medicine, Physician [address] [place], [place] [phone] Social History Tobacco Use Types Packs/Day Years [...] on filedocumented in this encounter Care Teams Supplier Diversity Director Relationship Specialty Start Date End Date Ace Richard MD [address] [place] [address] 78206 PCP - General 05/14/17 03/30/23 documented as of this encounter
--- OUTSIDE RECORDS SUMMARY | 2025-02-02 10:57 | XMS_ITS | Encounter Summary ---
Author Organization [facility] Address [address] [place] [address] 23799 Phone Care Team Providers Care Land Appraiser Name Role Phone Ace Richard MD Primary Care Provider [phone] Encounter Details Date Type Department Care Team (Late st Contact Info) Description 07/27/2012 Documentation [facility] Family Medicine [address] [place] [address] Family Medicine, Physician [address] [place], [place] [phone] Social History Tobacco Use Types Packs/Day Years [...] on filedocumented in this encounter Care Teams Land Appraiser Relationship Specialty Start Date End Date Ace Richard MD [address] [place] [address] 49481 PCP - General 05/14/17 03/30/23 documented as of this encounter
--- OUTSIDE RECORDS SUMMARY | 2025-02-02 10:57 | XMS_ITS | Encounter Summary ---
Author Organization [facility] Address [address] [place] [address] 8[address]70 Phone Care Team Providers Care Sleep Lab Technologist Name Role Phone Ace Richard MD Primary Care Provider [phone] Encounter Details Date Type Department Care Team (Late st Contact Info) Description 05/21/2014 Documentation [facility] [place] [address] [place] [address] Family Medicine, Physician [address] [place], [place] [phone] Social History Tobacco Use Types Packs/Day Years [...] on filedocumented in this encounter Care Teams Sleep Lab Technologist Relationship Specialty Start Date End Date Ace Richard MD [address] [place] [address] 41277 PCP - General 05/14/17 03/30/23 documented as of this encounter
--- OUTSIDE RECORDS SUMMARY | 2025-02-02 10:57 | XMS_ITS | Encounter Summary ---
Author Organization [facility] Address [address] [place] [address]1942 Phone Care Team Providers Care Night Cleaner Name Role Phone Ace Richard MD Primary Care Provider [phone] Encounter Details Date Type Department Care Team (Late st Contact Info) Description 05/20/2017 Conversion Encounter [facility] [place] [address] [place] [address] Social History Tobacco Use Types Packs/Day Years [...] on filedocumented in this encounter Care Teams Night Cleaner Relationship Specialty Start Date End Date Ace Richard MD [address] [place] [address] PCP - General 05/14/17 03/30/23 documented as of this encounter
--- OUTSIDE RECORDS SUMMARY | 2025-02-02 10:57 | XMS_ITS | Encounter Summary ---
Author Organization [facility] Address [address] [place] [address]014 Phone Care Team Providers Care Trade Clerk Name Role Phone Ace Richard MD Primary Care Provider [phone] Encounter Details Date Type Department Care Team (Late st Contact Info) Description 05/13/2012 Documentation [facility] [place] [address] [place] [address] Family Medicine, Physician [address] [place], [place] [phone] Social History Tobacco Use Types Packs/Day Years [...] on filedocumented in this encounter Care Teams Trade Clerk Relationship Specialty Start Date End Date Ace Richard MD [address] [place] [address] 79704 PCP - General 05/14/17 03/30/23 documented as of this encounter
--- OUTSIDE RECORDS SUMMARY | 2025-02-02 10:57 | XMS_ITS | Encounter Summary ---
Author Organization [facility] Address [address] [place] [address] Phone Care Team Providers Care Poultry Breeder Name Role Phone Ace Richard MD Primary Care Provider [phone] Encounter Details Date Type Department Care Team (Late st Contact Info) Description 06/05/2016 Documentation [facility] [address] [place] [address] Family Medicine, Physician [address] [place], [place] [phone] Social History Tobacco Use Types Packs/Day Years [...] on filedocumented in this encounter Care Teams Poultry Breeder Relationship Specialty Start Date End Date Ace Richard MD [address] [place] [address] PCP - General 05/14/17 03/30/23 documented as of this encounter
--- OUTSIDE RECORDS SUMMARY | 2025-02-02 10:57 | XMS_ITS | Encounter Summary ---
Author Organization [facility] Address [address] [place] [address] Phone Care Team Providers Care Grain Sacker Name Role Phone Ace Richard MD Primary Care Provider Encounter Details Date Type Department Care Team (Late st Contact Info) Description 05/21/2014 Documentation [facility] [place] Family Medicine [address] [place] [address] Family Medicine, Physician [address] [place], [place] [phone] Social History Tobacco Use Types Packs/Day Years [...] on filedocumented in this encounter Care Teams Grain Sacker Relationship Specialty Start Date End Date Ace Richard MD [address] [place] [address] PCP - General 05/14/17 03/30/23 documented as of this encounter
--- OUTSIDE RECORDS SUMMARY | 2025-02-02 10:57 | XMS_ITS | Encounter Summary ---
Author Organization [facility] Address [address] [place] [address] Phone Care Team Providers Care Box Spring Frame Builder Name Role Phone Ace Richard MD Primary Care Provider [phone] Encounter Details Date Type Department Care Team (Late st Contact Info) Description 05/22/2016 Documentation [facility] [place] Family Medicine [address] [place] [address] Family Medicine, Physician [address] [place], [place] [phone] Social History Tobacco Use Types Packs/Day Years [...] on filedocumented in this encounter Care Teams Box Spring Frame Builder Relationship Specialty Start Date End Date Ace Richard MD [address] [place] [address] PCP - General 05/14/17 03/30/23 documented as of this encounter
--- OUTSIDE RECORDS SUMMARY | 2025-02-02 10:57 | XMS_ITS | Encounter Summary ---
Author Organization [facility] Address [address] [place] [address] Phone Care Team Providers Care Search Engine Marketing Strategist Name Role Phone Ace Richard MD Primary Care Provider [phone] Encounter Details Date Type Department Care Team (Late st Contact Info) Description 05/21/2016 Documentation [facility] [place] [address] [place] [address] Family Medicine, Physician [address] [place], [place] [phone] Social History Tobacco Use Types Packs/Day Years [...] on filedocumented in this encounter Care Teams Search Engine Marketing Strategist Relationship Specialty Start Date End Date Ace Richard MD [address] [place] [address] PCP - General 05/14/17 03/30/23 documented as of this encounter
--- OUTSIDE RECORDS SUMMARY | 2025-02-02 10:57 | XMS_ITS | Encounter Summary ---
Author Organization [facility] Address [address] [place] [address] Phone Care Team Providers Care Aircraft Pilot Name Role Phone Ace Richard MD Primary Care Provider [phone] Encounter Details Date Type Department Care Team (Late st Contact Info) Description 05/21/2016 Documentation [facility] [place] Family Medicine [address] [place] [address] Family Medicine, Physician [address] [place], [place] [phone] Social History Tobacco Use Types Packs/Day Years [...] on filedocumented in this encounter Care Teams Aircraft Pilot Relationship Specialty Start Date End Date Ace Richard MD [address] [place] [address] PCP - General 05/14/17 03/30/23 documented as of this encounter
--- OUTSIDE RECORDS SUMMARY | 2025-02-02 10:57 | XMS_ITS | Encounter Summary ---
Author Organization [facility] Address [address] [place] [address] Phone Care Team Providers Care Geography Teacher Name Role Phone Ace Richard MD Primary Care Provider [phone] Encounter Details Date Type Department Care Team (Late st Contact Info) Description 05/17/2013 Documentation [facility] [place] Family Medicine [address] [place] [address] Family Medicine, Physician [address] [place], [place] [phone] Social History Tobacco Use Types Packs/Day Years [...] on filedocumented in this encounter Care Teams Geography Teacher Relationship Specialty Start Date End Date Ace Richard MD [address] [place] [address] PCP - General 05/14/17 03/30/23 documented as of this encounter
--- OUTSIDE RECORDS SUMMARY | 2025-02-02 10:57 | XMS_ITS | Encounter Summary ---
Author Organization [facility] Address [address] [place] [address] Phone Care Team Providers Care Avionics Systems Technician Name Role Phone Ace Richard MD Primary Care Provider [phone] Encounter Details Date Type Department Care Team (Late st Contact Info) Description 05/17/2013 Documentation [facility] [place] Family Medicine [address] [place] [address] Family Medicine, Physician [address] [place], [place] [phone] Social History Tobacco Use Types Packs/Day Years [...] on filedocumented in this encounter Care Teams Avionics Systems Technician Relationship Specialty Start Date End Date Ace Richard MD [address] [place] [address] PCP - General 05/14/17 03/30/23 documented as of this encounter
--- OUTSIDE RECORDS SUMMARY | 2025-02-02 10:57 | XMS_ITS | Encounter Summary ---
Author Organization [facility] Address [address] [place] [address] Phone Care Team Providers Care Glove Sewer Name Role Phone Ace Richard MD Primary Care Provider [phone] Encounter Details Date Type Department Care Team (Late st Contact Info) Description 05/13/2012 Documentation [facility] [place] [address] [place] [address] Family Medicine, Physician [address] [place], [place] [phone] Social History Tobacco Use Types Packs/Day Years [...] on filedocumented in this encounter Care Teams Glove Sewer Relationship Specialty Start Date End Date Ace Richard MD [address] [place] [address] PCP - General 05/14/17 03/30/23 documented as of this encounter
--- OUTSIDE RECORDS SUMMARY | 2025-02-02 10:57 | XMS_ITS | Encounter Summary ---
Author Organization [facility] Address [address] [place] [address] Phone Care Team Providers Care Linseed Oil Order Filler Name Role Phone Ace Richard MD Primary Care Provider [phone] Encounter Details Date Type Department Care Team (Late st Contact Info) Description 05/22/2016 Documentation [facility] [place] Family Medicine [address] [place] [address] Family Medicine, Physician [address] [place], [place] [phone] Social History Tobacco Use Types Packs/Day Years [...] on filedocumented in this encounter Care Teams Linseed Oil Order Filler Relationship Specialty Start Date End Date Ace Richard MD [address] [place] [address] PCP - General 05/14/17 03/30/23 documented as of this encounter
--- OUTSIDE RECORDS SUMMARY | 2025-02-02 10:57 | XMS_ITS | Encounter Summary ---
Author Organization [facility] Address [address] [place] [address] Phone Care Team Providers Care Sheet Metal Operator Name Role Phone Ace Richard MD Primary Care Provider [phone] Encounter Details Date Type Department Care Team (Late st Contact Info) Description 09/06/2013 Documentation [facility] [place] Family Medicine [address] [place] [address] Family Medicine, Physician [address] [place], [place] [phone] Social History Tobacco Use Types Packs/Day Years [...] on filedocumented in this encounter Care Teams Sheet Metal Operator Relationship Specialty Start Date End Date Ace Richard MD [address] [place] [address] PCP - General 05/14/17 03/30/23 documented as of this encounter
--- OUTSIDE RECORDS SUMMARY | 2025-02-02 10:57 | XMS_ITS | Encounter Summary ---
Author Organization [facility] Address [address] [place] [address] Phone Care Team Providers Care Exhaust Machine Operator Name Role Phone Ace Richard MD Primary Care Provider Encounter Details Date Type Department Care Team (Late st Contact Info) Description 05/21/2014 Documentation [facility] [place] Family Medicine [address] [place] [address] Family Medicine, Physician [address] [place], [place] [phone] Social History Tobacco Use Types Packs/Day Years [...] on filedocumented in this encounter Care Teams Exhaust Machine Operator Relationship Specialty Start Date End Date Ace Richard MD [address] [place] [address] PCP - General 05/14/17 03/30/23 documented as of this encounter
--- OUTSIDE RECORDS SUMMARY | 2025-02-02 10:57 | XMS_ITS | Encounter Summary ---
Author Organization [facility] Address [address] [place] [address] Phone Care Team Providers Care Opticianry Teacher Name Role Phone Ace Richard MD Primary Care Provider [phone] Encounter Details Date Type Department Care Team (Late st Contact Info) Description 05/13/2012 Documentation [facility] [place] [address] [place] [address] Family Medicine, Physician [address] [place], [place] [phone] Social History Tobacco Use Types Packs/Day Years [...] on filedocumented in this encounter Care Teams Opticianry Teacher Relationship Specialty Start Date End Date Ace Richard MD [address] [place] [address] PCP - General 05/14/17 03/30/23 documented as of this encounter
[2025-02-02 11:01] LABS: Estimated Average Glucose 111 mg/dL; Hemoglobin A1C 139.4765 umol/L; Hemoglobin A1c % 5.5 % (<6.0); Total Hemoglobin (HGBA1C) 3784.6604 umol/L
[2025-02-02 11:24] LABS: Alanine Aminotransferase 87 U/L (0-40); Albumin Level 4.3 g/dL (3.5-5.0); Alkaline Phosphatase 78 U/L (39-117); Anion Gap 12 (12-20); Aspartate Amino Transferase 46 U/L (5-37); Bilirubin Total 0.7 mg/dL (0.0-1.0); Blood Urea Nitrogen 8 mg/dL (9-16); Calcium 9.4 mg/dL (8.4-10.2); Carbon Dioxide 26 mmol/L (22-29); Chloride 108 mmol/L (96-108); Cholesterol 163 mg/dL (<200); Estimated Glomerular Filt Rate > 60; Glucose Random 90 mg/dL (60-115); HDL Cholesterol 24 mg/dL (>40); LDL Cholesterol Calculated 116 mg/dL (<100); Potassium 4.3 mmol/L (3.3-5.1); Sodium 142 mmol/L (135-145); Total Protein 7.6 g/dL (6.5-8.0); Triglycerides 119 mg/dL (<150)
[2025-02-02 11:32] LABS: Free T4 (Free Thyroxine) 0.87 ng/dL (0.71-1.85); Thyroid Stimulating Hormone 1.03 uIU/mL (0.32-4.0)
[2025-02-02 11:43] LABS: Folate 10.4 ng/mL (> or = 4.0); Vitamin B12 353 pg/mL (200-900)
== END 2025-02-02 10:00 | disposition home or self-care (01) ==
LOC: HO.LAB 09:59
PROVIDERS: PCP Internal Medicine; Visit Provider Internal Medicine
DX: L40.9 Psoriasis, unspecified (principal); E78.00 Pure hypercholesterolemia, unspecified; Z13.1 Encounter for screening for diabetes mellitus
CPT/HCPCS: 36415; 80053; 80061; 82607; 82746; 83036; 84439; 84443; 85025

== ENCOUNTER 2025-04-05 07:55 | Outpatient (REF) | payer OTHER, SELFPAY ==
--- NOTE | ~2025-04-05 | US_ITS ---
CLINICAL HISTORY: R79.89 - Other specified abnormal findings of blood chemistry US abdomen complete Comparison: None provided Findings: The visualized pancreas is normal. The aorta and inferior vena cava are normal caliber. The appearance of the liver suggests fatty infiltration. There is no intrahepatic bile duct dilatation. The common duct is 4.0 mm in diameter. The gallbladder is normal. There is no sonographic Carrera sign. The main portal vein is antegrade. The right kidney is 13.4 cm in length. The left kidney is 12.6 cm in length. The spleen is normal. No ascites. IMPRESSION: 1. Hepatic steatosis. This document has been electronically signed by: Ace Norwood MD on 04/05/2025 10:26:30
--- OUTSIDE RECORDS SUMMARY | 2025-04-05 07:57 | XMS_ITS | Encounter Summary ---
Author Organization [facility] Address [address] [place] [address] Phone Care Team Providers Care Hot Metal Crane Operator Name Role Phone Ace Richard MD Primary Care Provider [phone] Encounter Details Date Type Department Care Team (Late st Contact Info) Description 05/22/2015 Documentation [facility] [place] [address] [place] [address] Family Medicine, Physician [address] [place], [place] [phone] Social History Tobacco Use Types Packs/Day Years [...] on filedocumented in this encounter Care Teams Hot Metal Crane Operator Relationship Specialty Start Date End Date Ace Richard MD [address] [place] [address] PCP - General 05/14/17 03/30/23 documented as of this encounter
== END 2025-04-05 07:56 | disposition home or self-care (01) ==
LOC: HO.US 07:55
PROVIDERS: PCP Internal Medicine; Visit Provider Internal Medicine
DX: R79.89 Other specified abnormal findings of blood chemistry (principal)
CPT/HCPCS: 76700

== ENCOUNTER → 2025-04-05 07:56 | Outpatient (BNV) | payer OTHER, SELFPAY | PROVIDERS: PCP Internal Medicine; Visit Provider Specialist | DX: K76.0 Fatty (change of) liver, not elsewhere classified (principal) | CPT/HCPCS: 76700 ==